=== PATIENT | female | born 1995 | race Caucasian/White ===

== ENCOUNTER → 2020-05-27 | Outpatient (CLI) | payer BC ==
--- NOTE | 2020-05-27 11:37 | REP ---
INDICATION: D27.1 BENIGN NEOPLASM OF LT OVARY. COMPARISON: None. TECHNIQUE: Transabdominal and transvaginal scanning were performed. FINDINGS: Uterine dimensions are normal at 9.0 x 3.7 x 5.5 cm. Endometrial echo is 0.9 cm thick and centrally placed. No free fluid is seen in the cul-de-sac. Visualized bladder bland are smooth. No focal uterine mass is seen. No free fluid is noted. The right ovary has dimensions of 8.4 x 3.3 x 5.3 cm. It's Doppler flow is normal with a resistive index of 0.58. There are follicle cysts throughout the right ovary. In addition, in the right adnexa there is a complex lobulated predominantly hyperechoic mass with cystic components. This measures 6.4 x 4.3 x 3.3 cm. There are adjacent hyper hyperechoic structures as well measuring 2.7 and 1.6 cm in greatest diameter respectively. The left ovary dimensions are normal as well at 5.2 x 3.6 x 3.7 cm. It's Doppler flow was normal with resistive index of 0.52. There is a complex cystic and solid component to a left adnexal mass lesion as well. A hyperechoic structure in the left adnexa is seen measuring 2.1 x 1.9 x 2.0 cm. There is a complex adjacent structure measuring 3.3 by 2.7 x 2.4 cm. IMPRESSION: Bilateral complex cystic and solid adnexal mass lesions. No free fluid. No uterine mass lesion is observed. Ovarian lesions could be further characterized by pelvic MRI scanning.. <Electronically signed by José Manuel Whitaker > 05/27/20 [id number]
== END ==
LOC: M WHC 10:07
PROVIDERS: ATTEND Obstetrics & Gynecology
DX: D27.1 Benign neoplasm of left ovary (principal)

== ENCOUNTER → 2020-06-28 | Outpatient (CLI) | payer BC ==
[~2020-06-28] MED LIST: DEPO150I12 IM
== END ==
LOC: M LABSMTC 10:44
PROVIDERS: ATTEND Anesthesiology
DX: Z01.812 Encounter for preprocedural laboratory examination (principal); Z20.828 Contact with and (suspected) exposure to other viral communicable diseases

== ENCOUNTER 2020-07-03 10:25 | Day surgery (SDC) | payer BC ==
[~2020-07-03] VITALS: Ht 165.1 cm; Wt 108.9 kg
[~2020-07-03 10:25] MED LIST changes: +LR 1,000 ML IV ONE
[2020-07-03] MEDS ORDERED: ROCURONIUM BROMIDE 50 MG/5 ML VIAL As Ordered ONE ×2 (15:38→17:25)
[2020-07-03] MEDS ORDERED: LIDOCAINE 2% 100MG/5ML SDV (FOR ANES.) As Ordered ONE ×2 (15:38→16:47)
[2020-07-03] MEDS ORDERED: propofoL 200 MG/20 ML VIAL As Ordered ONE (15:38)
[2020-07-03] MEDS ORDERED: ONDANSETRON 4MG/2ML VIAL As Ordered ONE ×2 (15:39→17:19)
[2020-07-03] MEDS ORDERED: dexameTHASONE 4 MG/ML 1ML VIAL (J1100 PER 1MG) As Ordered ONE (15:39)
[2020-07-03] MEDS ORDERED: MIDAZOLAM INJ 2MG/2ML VIAL (J2250 PER 1MG) As Ordered ONE (15:39)
[2020-07-03] MEDS ORDERED: fentaNYL 100 MCG/2 ML INJECTION (J3010) As Ordered ONE ×2 (15:39→17:08)
[2020-07-03] MEDS ORDERED: SCOPOLAMINE 1MG TRANSDERMAL PATCH As Ordered ONE (15:58)
[2020-07-03] MEDS ORDERED: BUPIVACAINE HCL 0.25% 30ML VIAL As Ordered ONE (16:17)
[2020-07-03] MEDS ORDERED: SCOPOLAMINE 1MG TRANSDERMAL PATCH TOP ONE (16:30)
[2020-07-03] MEDS ORDERED: KETOROLAC 60MG 2ML VIAL As Ordered ONE (17:19)
[2020-07-03] MEDS ORDERED: METOCLOPRAMIDE INJ 10MG/2ML VIAL (J2765 PER 1) As Ordered ONE (17:20)
[2020-07-03] MEDS ORDERED: SUGAMMADEX SODIUM 500 MG/5 ML VIAL (BRIDION) As Ordered ONE (17:25)
[2020-07-03] MEDS ORDERED: HYDROmorphone HCL 2 MG/ML 1ML VIAL (J1170) As Ordered ONE (17:27)
[2020-07-03] MEDS ORDERED: ACETAMINOPHEN 1000MG 100ML IV BTL (OFIRMEV) (J0131 PER 10MG) As Ordered ONE (17:29)
[2020-07-03] MEDS: PERCOCET 5MG/325MG TAB PO PRN ×2 (19:36→20:08)
[2020-07-03] MEDS ORDERED: LR 1,000 ML IV SCH ×2 (19:45)
[2020-07-03] MEDS ORDERED: IBUPROFEN 600MG TAB PO PRN (19:45)
[2020-07-03] MEDS ORDERED: ONDANSETRON 4MG/2ML VIAL IV PRN (19:45)
[2020-07-03] MEDS ORDERED: METOCLOPRAMIDE INJ 10MG/2ML VIAL (J2765 PER 1) IV PRN (19:45)
[2020-07-03] MEDS ORDERED: fentaNYL 100 MCG/2 ML INJECTION (J3010) IV PRN (19:45)
[2020-07-03] MEDS ORDERED: HYDROMORPHONE HCL 0.5 MG/ 0.5 ML SYRINGE (J1170 PER 1) IV PRN (19:45)
[2020-07-03] MEDS ORDERED: NORCO, ANEXSIA 5/325MG TABLET (HYDROcodone/ACETAMINOPHEN) PO PRN (19:45)
[2020-07-03 20:55] VITALS: BP 127/76
--- NOTE | 2020-07-04 08:09 | RO ---
OPERATIVE NOTE DATE OF OPERATION: 07/03/2020 PREOPERATIVE DIAGNOSIS/INDICATION FOR SURGERY: Bilateral dermoid cysts. POSTOPERATIVE DIAGNOSIS: Bilateral dermoid cysts. PROCEDURE: Diagnostic laparoscopy with mini-laparotomy and bilateral ovarian cystectomy with retention of ovaries. SURGEON: Ivania Maldonado MD CLINICAL APPLICATION SPECIALIST: None ANESTHESIA: General endotracheal anesthesia SPECIMENS: Bilateral ovarian cysts in several pieces. Some of the cyst contents were suctioned out and went with the suction. Given the appearance, there was more than enough tissue to evaluate and so we did not send the suction to the pathologist. BRIEF DESCRIPTION OF PROCEDURE AND FINDINGS: Gwendolyn was brought to the operating room where sufficient general endotracheal anesthesia was induced. She was prepped, draped and positioned in the usual sterile fashion with the uterine manipulator in place and the bladder emptied and attention turned to the abdomen. A transverse semilunar incision was made below the umbilicus. Sharp and blunt dissection were continued through subcutaneous tissues to the level of the rectus fascia which was grasped with Clara clamps, secured with 0 Vicryl retention sutures, carefully transected under direct visualization and then the peritoneum entered again under direct visualization and the Willa cannula placed and secured with the 0 Vicryl retention sutures following which CO2 insufflation was then begun. After adequate CO2 insufflation, the peritoneal cavity was visualized. There were normal shiny peritoneal surfaces throughout with no excrescences, ascites nor exudate. As noted in the photographs with Trendelenburg and elevation of the uterus, we were able to readily see both ovaries which extended way down into the cul-de-sac and then back up to the ovarian fossa and were each about half the size of the uterus as you can seen in the photos. They also did not elevate well off the floor of the pelvis. With the manipulator, we could see that they were just heavy, not scarred in, not immobile but heavy and universally enlarged. It was not evident on both of the ovaries just visually looking at them where the dermoids were. I had had a lengthy conversation with the patient because she had such large dermoids bilaterally and at least one of the ovaries was read as a rim of ovarian tissue, that kind of thing. We had spoken about doing a mini-lap so that I could feel the ovaries, peel the outside off and be able to suture them, retaining the ovarian tissue as much as possible in this patient who is by no means done with childbearing. She was much more interested in protecting her fertility and keeping both ovaries than in the type of wound that she had so consistent with that discussion, we went ahead and switched to a mini-lap, made a 4 cm transverse incision suprapubically in the midline and carefully dissected through subcutaneous tissues to the rectus fascia which was transversely incised, dissected away from the underlying rectus muscles. There were a couple pumpers, each side which we oversewed with 2-0 Vicryl. We the muscles in the midline bluntly and entered the peritoneum bluntly and then with Trendelenburg, we were able to elevate the uterus with the uterine manipulator and feel the anterior aspect of the uterus and then carefully with a pack to move the bowel and omentum, etc out of the way, able to visualize the ovary. They were as expected still fairly heavy and large and difficult to move up and around the uterus so we would have had to put a suture through the ovary and elevated the ovary that way because they were wide enough so the Severo just would not hold, would not get a good clamp. So we went ahead and brought first the right ovary up to the wound and then carefully opened it, drained a fairly copious amount of fatty liquid and cottage cheese-like liquid consistent with dermoid. There were several hairballs and a tooth, under-formed calcified lesion that could possibly have been primordially tooth tissue and we shelled out the cyst wall. There were actually there separate areas which evidenced dermoid tissue and we made sure to take out any of this abnormal appearing tissue and then in a multilayer closure reapproximated the now observed paper-thin ovarian bland but we were able to get good hemostasis and retained some normal appearing ovarian tissue and were able to keep the fallopian tubes within the abdomen for the case and keeping them moist and not out in the air. After completing the removal of three separate dermoids from the right ovary, one quite large, and then closing it and having good hemostasis, we turned our attention to the left ovary and a similar procedure was carried out, quite a bit smaller and this again a couple areas of dermoid but we were able to retain a larger amount of normal appearing ovarian tissue and closed a purse-string multilayer closure and then we used 2-0 Vicryl on the ovaries, both sides. When we had good hemostasis achieved, we went ahead and let the ovary back into the abdomen and made sure both ovaries were in their normal location. We copiously irrigated and suctioned, again taking care to avoid the fallopian tubes and made sure all of our pack was out. We then reapproximated the rectus muscles in the midline and then closed the fascia with 0 Vicryl suture in a running stitch. Deep layer closure was done because the subcu was more than 2 cm deep so we did interrupted stitches in the Amada's fascia then did a subcu closure with 3-0 Vicryl at the skin. We then also closed the umbilical wound, the fascial layer with 0 Vicryl retention sutures in the skin again with 3-0 Vicryl in a subcuticular stitch. Dry sterile dressings were then applied. Of course, the uterine manipulator and tenaculum were removed at the end of the case and the procedure ended. ESTIMATED BLOOD LOSS: For the procedure, about 25 mL. FLUID REPLACEMENT: Crystalloid. COMPLICATIONS: None. CONDITION AND DISPOSITION: Gwendolyn tolerated the procedure well and was recovering in the recovery room in good condition.
== END 2020-07-03 20:55 | disposition home or self-care (01) ==
LOC: M SDC 10:25
PROVIDERS: ATTEND Obstetrics & Gynecology
DX: D27.1 Benign neoplasm of left ovary (principal); D27.0 Benign neoplasm of right ovary; J45.909 Unspecified asthma, uncomplicated; Z88.2 Allergy status to sulfonamides; Z79.3 Long term (current) use of hormonal contraceptives
CPT/HCPCS: 58925; 81025; 88305; J0131; J1100; J1170; J1885; J2250; J2405; J2765; J3010